=== PATIENT | male | born 1995 | race Caucasian/White ===

== ENCOUNTER 2018-06-01 21:58 | Emergency (ER) | payer MEDICAID, OTHER ==
[~2018-06-01] VITALS: Ht 193 cm; Wt 124.7 kg
[2018-06-01 22:03] VITALS: BP 152/77
--- NOTE | 2018-06-01 22:08 | NUR ---
LEFT DELTOID APPEARS BENIGN, -REDNESS, -S/S OF INFECTION
--- NOTE | 2018-06-01 22:08 | NUR ---
TO [facility], A/W BED, AMBULATORY, ERMD NOTED
--- NOTE | 2018-06-01 22:08 | NUR ---
22/M CAME IN W C/O LEFT ARM PAIN S/P [facility]VE[facility] IM SHOT AT 1400 TODAY. PER PT HE RECEIVES SAME INJECTION EACH MONTH BUT TODAY "IT HURTS MORE THAN USUAL". DENIES NUMBNESS/TINLGING TO LUE, +PMSC WITH C/O PAIN TO MOVEMENT. PMH; SCHIZOPHRENIA, ANXIETY, DEPRESSION
--- NOTE | 2018-06-01 23:26 | NUR ---
Patient discharged with v/s stable. Written and verbal after care instructions given and explained BY DR ANDRADE. Patient alert, oriented and verbalized understanding of instructions. Ambulatory with steady gait. All questions addressed prior to discharge. ID band removed. Patient advised to follow up with PMD. Rx of NAPROSYN given. Patient educated on indication of medication including possible reaction and side effects. Opportunity to ask questions provided and answered.
[2018-06-01 23:30] VITALS: BP 128/72
== END 2018-06-01 23:26 | disposition home or self-care (01) ==
LOC: MED 21:58
DX: M75.22 Bicipital tendinitis, left shoulder (principal); F20.9 Schizophrenia, unspecified; F32.9 Major depressive disorder, single episode, unspecified; Z88.0 Allergy status to penicillin
CPT/HCPCS: 99283